=== PATIENT | male | born 1980 | race Caucasian/White ===

== ENCOUNTER 2022-03-23 17:00 | Emergency (ER) | payer MEDICAID ==
[2022-03-23] MEDS ORDERED: Sodium Chloride 0.9% 1,000 ML IV STA (17:14)
[2022-03-23] MEDS ORDERED: Sodium Chloride 0.9% 10 ML Syringe FLUSH PRN (17:14)
[2022-03-23 17:53] LABS: ESTIMATED GFR 78 mL/min (>60)
[2022-03-23] MEDS ORDERED: Calcium Gluconate 10% 1 GM/10 ML SDV IVPUSH ONE (17:57)
== END 2022-03-23 19:01 | disposition home or self-care (01) ==
LOC: JD.ED 17:00
DX: T67.5XXA Heat exhaustion, unspecified, initial encounter (principal); F17.210 Nicotine dependence, cigarettes, uncomplicated; Z91.013 Allergy to seafood; Z91.041 Radiographic dye allergy status; Z91.018 Allergy to other foods
CPT/HCPCS: 36415; 80053; 83735; 84484; 85025; 93005; 96360; 99284; J3490; J7030